=== PATIENT | female | born 1940 | race Caucasian/White ===

== ENCOUNTER 2019-08-26 20:02 | Inpatient (IN) | payer MEDICARE, BC ==
[~2019-08-26] VITALS: Ht 152.4 cm; Wt 72.2 kg
[2019-08-26] VITALS (84 sets, daily range): BP systolic 161; BP diastolic 69–89; PULSE 89–90; TEMP 98.1; O2SAT 86–99
[~2019-08-26 20:02] MED LIST: 00186-0372-20; ALDACTONE 25MG25 M1 PO; ALLEGRA 180MG180 MG PO; ALTACE 10MG TAB10 MG PO; APRESOLINE 25MG25 MG PO; ATIVAN 0.50.5 MG/TAB PO; CALCIUM 500500 M2 PO; CATAPRES 0.1MG0.1 MG PO; CEFTIN500 MG PO; COD LIVER OIL PO; COUMADIN 22.5 MG/TAB PO; COUMADIN 3MG3 MG/TAB PO; FEROSUL325 MG PO; LANOXIN 0.25M0.25 MG PO; LASIX 20MG TABL20 MG PO; LASIX 40MG TABL40 MG PO; LIPITOR 10MG10 MG PO; LOPRESSOR 225 MG/TAB PO; LOPRESSOR 550 MG/TAB PO; MULTI VITAMINS1 TAB PO; NEXIUM 40MG40 MG PO; NORVASC 5MG5 MG/TAB PO; PREMARIN 0.60.625 M1 PO; PRINIVIL10 MG PO; RED YEAST RICE600 MG PO; RT ADVAIR HFA 1112 G IH; RT SPIRIVA18 MCG IH; SOMA 350MG350 MG/TAB PO; TRICOR145 MG PO; ULTRAM 50MG TAB50 MG PO; VITAMIN B-1000 MCG/T PO; VITAMIN B-625 MG PO; ZESTRIL40 MG PO
--- NOTE | 2019-08-26 20:15 | NUR ---
PT RECEIVED DIRECT ADMIT FROM [facility], SUKHDEVM DRIP RUNNING AT 10 MG/HR AND WILL CONTINUE DRIP RATE. HR AT 90'S. WILL CONTINUE TO MONITOR.
[2019-08-26] MEDS ORDERED: PRIL40 PO (21:29)
[2019-08-26] MEDS ORDERED: TOPROL XL 25MG25 MG PO (21:37)
[2019-08-26] MEDS ORDERED: DULCOLAX STOOL100 MG PO (21:41)
[2019-08-26] MEDS ORDERED: GLUCOPHAGE1000 MG PO (21:42)
[2019-08-26] MEDS ORDERED: BREO IH (21:43)
[2019-08-26] MEDS ORDERED: RT SPIRIVA18 MCG IH (21:44)
[2019-08-27] VITALS (539 sets, daily range): BP systolic 94–190; BP diastolic 49–86; PULSE 68–111; TEMP 97.7–98.2; O2SAT 90–100
--- NOTE | 2019-08-27 04:33 | NUR ---
1929 - RECEIVED REPORT FROM ORVILLE HOLLEY OF [facility]. 2004 - PT ARRIVED IN UNIT VIA STRETCHER, ABLE TO TRANSFER SELF TO BED WITH 2 PERSON ASSIST. PT ALERT AND ORIENTED X 4, DENIES ANY PAIN UNLESS MOVING AND TOUCHING RLE. 2024 - DR. BRADFORD NOTIFIED REGARDING PT'S ARRIVAL. 2044 - DR. BRADFORD AT BEDSIDE DISCUSSING PLAN OF CARE WITH PT AND FAMILY.
[2019-08-27 05:24] LABS: BASO % 0.3 % (0.0-2.0); EOS % 0.2 % (0-4.0); GRAN # 8.6 (1.4-6.5); LYMPH # 1.2 (1.2-3.4); LYMPH % 10.8 % (20.0-51.0); MEAN CELL VOLUME 103 fl (80.0-100.0); MEAN CORPUSCULAR HGB CONC 32 g/dl (33.0-37.0); MEAN PLATELET VOLUME 10.6 fl (7.4-10.4); MONO # 0.9 (0.1-0.6); MONO % 8.2 % (1.7-9.3); PLATELET COUNT 157 K/mm3 (130-400); RED BLOOD COUNT 3.01 M/mm3 (4.10-5.30); REDCELL DISTRIBUTION WIDTH-CV 13.9 % (11.5-14.5)
[2019-08-27 05:30] LABS: ALBUMIN 3.3 gm/dL (3.5-5.0); BILIRUBIN,TOTAL 0.3 mg/dL (0.0-1.0); CALCIUM 8.4 mg/dL (8.4-10.2); CREATININE, serum 0.97 (0.52-1.25); HEMATOCRIT 31.1 % (37.0-47.0); HEMOGLOBIN 9.8 g/dl (12.5-16.0); INR 2.8 (0.8-3.0); MAGNESIUM 1.5 mg/dL (1.6-2.3); MEAN CORPUSCULAR HEMOGLOBIN 33 pg (27.0-31.0); POTASSIUM 4.4 mmol/L (3.4-5.0); PROTHROMBIN TIME 34.2 SECONDS (9.7-12.8); TOTAL PROTEIN 6.3 gm/dL (6.4-8.2)
[2019-08-27 05:42] LABS: TROPONIN-I 0.012 ng/mL (0.000-0.035)
--- NOTE | 2019-08-27 06:14 | NUR ---
Vancomycin Initial Dosing Pharmacy Note Ordering provider: Deni Jorgensen MD Indication/duration: skin/soft tissue infection (R-foot/ankle), 7 days Relevant comorbidities: diabetes, h/o x2 recent hospitalizations for [facility] LABS: SCr 0.97, CrCl~39, GFR 56 Recommendation: Will continue Vancomycin 1 gm IV q24h. Pharmacy will check a Vancomycin trough prior to 4th total dose on 08/29/19. Pharmacy will continue to monitor. Loading dose: 1 grams Maintenance dose: 1 gram every 24 hours Trough goal: 10-15 ug/mL
--- NOTE | 2019-08-27 09:10 | NUR ---
Warfarin Initial Dosing Pharmacy Note Ordering Provider: Deni Jorgensen MD Indication: Atrial fibrillation LABS: INR 2.8 (INR 3.8 yesterday per [facility]) Recommendation: Continue home dose of Warfarin 2.5 mg po qHS. Pharmacy will continue to monitor daily INR levels. Home Regimen: Warfarin 2.5 mg po qHS
--- NOTE | 2019-08-27 09:52 | NUR ---
Initial visit; Patient and thanked Film Editor Supervisor for looking in on her and keeping her in Film Editor Supervisor's prayers.
--- NOTE | 2019-08-27 11:29 | NUR ---
chemical research worker met with patient to discuss discharge planning. Patient lives with spouse in [place], [place] and does not utilize any services. Patient has a walker and a wheelchair. Patient plans to return home. Will await therapy recommendations when patient can tolerate. Patient's primary care provider is Dr Oconnell in [place].
--- NOTE | 2019-08-27 15:48 | NUR ---
Patient to room 358 from stress test. Nurse orientated patient to room and call light. Patient A&O, reporting pain in IV site on left arm and BUE. IV to left AC removed, tip intact. Patient tolerated well.
--- NOTE | 2019-08-27 15:55 | NUR ---
Assessment charted. VSS, 2L NC O2. No reported SOB. IV right forearm CDI. Patient assisted to bathroom with standby assist and gait belt. No further needs expressed from patient. Call light within reach
--- NOTE | 2019-08-27 18:21 | NUR ---
Patient resting in bed, easily awakened with verbal command. A&O, reporting pain in left arm with movement and palpation. VSS 2L NC O2. No reported SOB. IV CDI, fluids infusing. No further needs expressed from patient. Call light within reach
--- NOTE | 2019-08-28 02:20 | NUR ---
patient doing well tonight. ambulated to bathroom with assistance from [employer], heart rate did jump up to 140. returned to normal after returning to bed. significant R leg swelling noted. wound to lateral ankle CDI and open to air. RLE is red and shiny. L arm is edematic and bruised at AC site. no further needs at this time. will continue to monitor.
[2019-08-28 05:10] VITALS: BP 131/86; PULSE 145; PULSE 55; TEMP 98.4
--- NOTE | 2019-08-28 05:12 | NUR ---
patient up to bathroom. ambulated well. upon returning to bed, patient became SOA and pulse was up to 200. stat EKG done. AFIB with RVR noted with rate of 118. See Vitals. O2 normal, patient wheezing, reconnected to oxygen. encouraged deep breathing. IV to RFA pulled out by patient. new IV started in R hand. fluids capped for now. awaiting doctors orders. will continue to monitor.
[2019-08-28 07:25] LABS: BASO % 0.1 % (0.0-2.0); EOS # 0.1 (0.0-0.7); EOS % 0.8 % (0-4.0); GRAN # 7.9 (1.4-6.5); LYMPH % 9.9 % (20.0-51.0); MEAN CELL VOLUME 104 fl (80.0-100.0); MEAN CORPUSCULAR HGB CONC 30 g/dl (33.0-37.0); MEAN PLATELET VOLUME 10.6 fl (7.4-10.4); MONO % 9.6 % (1.7-9.3); PLATELET COUNT 183 K/mm3 (130-400); RED BLOOD COUNT 3.02 M/mm3 (4.10-5.30); REDCELL DISTRIBUTION WIDTH-CV 13.8 % (11.5-14.5)
[2019-08-28 07:30] LABS: INR 2.1 (0.8-3.0); PROTHROMBIN TIME 24.5 SECONDS (9.7-12.8)
[2019-08-28 07:34] LABS: HEMATOCRIT 31.5 % (37.0-47.0); HEMOGLOBIN 9.5 g/dl (12.5-16.0); MEAN CORPUSCULAR HEMOGLOBIN 31 pg (27.0-31.0)
[2019-08-28 07:38] VITALS: BP 131/68; PULSE 88; TEMP 98.3
[2019-08-28 07:40] LABS: CALCIUM 8.4 mg/dL (8.4-10.2); CREATININE, serum 0.81 (0.52-1.25); POTASSIUM 3.8 mmol/L (3.4-5.0)
[2019-08-28 08:12] LABS: C-REACTIVE PROTEIN 14.7 mg/dL (0.0-0.9)
--- NOTE | 2019-08-28 08:15 | NUR ---
Pt awake and alert this morning, spouse in room with Pt, no C/O pain at this time, shiftr assessments complete, left Pt call light in reach, bed in lowest position.
--- NOTE | 2019-08-28 09:01 | NUR ---
Facilities Officer attended clinical rounds with the team. Patient in rapid afib and will not discharge today. Patient would like to return home although Hospitalist reviewed option of post acute rehab. PT to work with patient. Speech Therapy also ordered. SW to continue to follow.
[2019-08-28 10:34] VITALS: BP 165/72; PULSE 118; TEMP 98.3
[2019-08-28 16:34] VITALS: BP 160/84; PULSE 117; TEMP 98.3
[2019-08-28 19:08] VITALS: BP 98/51; PULSE 113; TEMP 98.3
--- NOTE | 2019-08-28 20:00 | NUR ---
Report received. Assumed care for awake overnight counselor. Noted to be tachycardic into 120s-other VS stable. Assessment complete. Qarter size necrotic area to right lower extremity-open to air. Edema to BLE 2+/BUE 2+. Denies shortness of breath-pursed lip breathing-states breathing has been better earlier this day. Appears to be using some accessory muscles-O2 Sat 92-94% on O2@2L/NC. Denies pain. Denies nausea. Will monitor closely.
--- NOTE | 2019-08-28 20:10 | NUR ---
Pt rested in the room today, no C/O pain during the day, VS have remained stable except heart rate varies.
--- NOTE | 2019-08-28 22:00 | NUR ---
Resting in bed eyes closed. Respiratory rate WNL-Breathing easier at rest. Will monitor.
[2019-08-28 23:59] VITALS: BP 150/87; PULSE 127; TEMP 98.2
[2019-08-29] VITALS (606 sets, daily range): BP systolic 123–178; BP diastolic 56–100; PULSE 59–129; TEMP 97.5–98.2; O2SAT 89–100
--- NOTE | 2019-08-29 00:50 | NUR ---
Notified by PCT of increased shortness of breath after getting up to void. Arrived to room and is already back in bed. States she got short of breath when getting up out of bed. States its already starting to get better-still appears to be struggling. VS complete-remains tachycardic at 127-all other WNL. States she feels as if she is catching her breath now that she is laying down. Denies chest pain/nausea. Will continue to reassess.
--- NOTE | 2019-08-29 01:05 | NUR ---
This nurse to room-notified by staff that respiratory effort increasing. States she started to feel more short of breath the last few minutes. [id number], pulse 129, resps 26-pulse ox 92% on 2L/NC. Using accessory muscles to breathe-some light grunting. Audible wheezes heard without stethescope. Will notify hospitalist of status change.
--- NOTE | 2019-08-29 01:15 | NUR ---
SURESH Mcintosh in room.
--- NOTE | 2019-08-29 01:25 | NUR ---
New orders recieved to transfer to [facility]. service center supervisor notified waiting bed assignment. Dr Montanez notified of status change by this nurse-spoke with hospitalist as well.
--- NOTE | 2019-08-29 01:25 | NUR ---
Report called to IMCU nurse. Transported to IMCU bed 2. Assisted with transfer to ICU bed.
--- NOTE | 2019-08-29 02:11 | NUR ---
Emergency contact notified of transfer to [facility] BED 2. States he is glad that has happened and will be in around 6am this morning.
--- NOTE | 2019-08-29 02:15 | NUR ---
Explained to patient the purpose of Cardizem drip for A-fib RVR. Patient verbalized understanding. Leoncio A-fib RVR rate ranging from 100-130's.
--- NOTE | 2019-08-29 02:54 | NUR ---
Patient arrived to the unit via stretcher. Patient alert and cooperative, but in moderative respiratory distress at rest. Audible wheezing heard without a stethoscope. Attached to all monitors. 02 91-94% on 2L. Assessment complete at this time. Quarter sized wound to right lateral lower leg; Wound bed is black and open to air.
--- NOTE | 2019-08-29 02:54 | NUR ---
Inserted pickering at this time; patient tolerate procedure well. Received clear, yellow urine immediately after insertion. Will continue to monitor.
[2019-08-29 06:32] LABS: HEMOGLOBIN 10.4 g/dl (12.5-16.0); INR 2.1 (0.8-3.0); MEAN CELL VOLUME 105 fl (80.0-100.0); MEAN CORPUSCULAR HEMOGLOBIN 32 pg (27.0-31.0); MEAN CORPUSCULAR HGB CONC 31 g/dl (33.0-37.0); MEAN PLATELET VOLUME 10.7 fl (7.4-10.4); PLATELET COUNT 188 K/mm3 (130-400); PROTHROMBIN TIME 24.5 SECONDS (9.7-12.8); RED BLOOD COUNT 3.21 M/mm3 (4.10-5.30); REDCELL DISTRIBUTION WIDTH-CV 13.9 % (11.5-14.5)
[2019-08-29 06:39] LABS: HEMATOCRIT 33.8 % (37.0-47.0)
[2019-08-29 06:48] LABS: CALCIUM 9.2 mg/dL (8.4-10.2); CREATININE, serum 0.81 (0.52-1.25); MAGNESIUM 1.9 mg/dL (1.6-2.3); POTASSIUM 4.5 mmol/L (3.4-5.0)
--- NOTE | 2019-08-29 08:00 | NUR ---
PT'S RESPIRATIONS LABORED W/ AUDIBLE WHEEZING. PT'S LEFT LUNG BEARD COARSE THROUGHOUT. RIGHT UPPER AND MID LOBES COARSE, RIGHT BASE COARSE CRACKLES. LEFT AC AREA/POSTERIOR LEFT ELBOW IS REDDENED, EDEMATOUS, WITH ERYTHEMA AND GOLF BALL SIZE KNOT. CELLULITIS TO RIGHT ANKLE/GONCALVES AREA WITH GOLF BALL SIZE ULCER WITH A DARK/BLACK SCAB. REDNESS NOTED TO PERIPHERY OF ULCER. ANT OINTMENT AND BANDAGE APPLIED. PT'S COCCYX REDDEND WITH SMALL EXCORIATED AREAS TO BILATERAL BUTTOCKS ON EITHER SIDE OF COCCYX.
--- NOTE | 2019-08-29 08:02 | NUR ---
CALLED DR ELIZABETH REGARDING POSSIBLE THORACENTESIS THIS AM ACCORDING TO ZACH'S NOTE OVERNIGHT. DR ELIZABETH STATED HE WILL BE HERE TO ASSESS PATIENT IN 10 MINUTES. NO ORDER FOR NPO OR THORA PLACED SO CAFETERIA GAVE PATIENT HER TRAY AND PATIENT HAD ALREADY BEGUN EATING WHILE NURSE WAS IN ANOTHER ROOM. DR ELIZABETH STATES IT IS OK FOR HER TO EAT AND HE WILL DETERMINE THE PLAN OF CARE WHEN HE ARRIVES.
--- NOTE | 2019-08-29 10:21 | NUR ---
DR BRADFORD PLACED GI CONSULT FOR UPPER GI. DR BRADFORD CALLED DR DAVID TO NOTIFY. UPPER GI SCHEDULED FOR TODAY AT 12. DIRECTOR OF FOOD AND NUTRITION SERVICES CALLED. ANESTHESIA NOTIFIED.
--- NOTE | 2019-08-29 10:27 | NUR ---
Follow-up visit; Patient and thanked Tube Knitter for looking in on her and wishing her well and God's blessings.
--- NOTE | 2019-08-29 10:32 | NUR ---
CONSENT FOR UPPER SCOPE OBTAINED AND PLACED ON CHART.
[2019-08-29 11:38] LABS: INR 1.8 (0.8-3.0); PROTHROMBIN TIME 20.8 SECONDS (9.7-12.8)
--- NOTE | 2019-08-29 12:15 | NUR ---
PT TAKEN BY STEFANI ENDO NURSE, TO ENDO FOR UPPER GI.
--- NOTE | 2019-08-29 12:56 | NUR ---
REPORT RECEIVED FROM MALLIKA KO RN. NO BIOPSIES PERFORMED D/T INR LEVEL ACCORDING TO STEFANI. PATIENT AWAKE, ALERT, AND ORIENTED.
--- NOTE | 2019-08-29 13:18 | NUR ---
US TECH HERE TO SET UP FOR THORACENTESIS. CONSENT OBTAINED AND PLACED ON CHART.
--- NOTE | 2019-08-29 13:35 | NUR ---
TIME OUT COMPLETED BY DR MAGAÑA PRIOR TO INITATION OF PROCEDURE.
--- NOTE | 2019-08-29 13:54 | NUR ---
1.1L CLEAR, PINK TINGED FLUID REMOVED FROM PLEURAL SPACE BY DR MAGAÑA IN RADIOLOGY. GALILEO US TECH, SENT SPECIMENS OF PLEURAL FLUID FOR RESTING. AREA COVERED WITH BANDAID. PT TOLERATED WELL.
[2019-08-29 14:22] LABS: PLEURAL FLUID RBC 12000 /mm3 (0-0); PLEURAL FLUID WBC 901 /mm3
[2019-08-29 14:42] LABS: PLEURAL FLUID APPEARANCE HAZY; PLEURAL FLUID COLOR PINK
[2019-08-29 14:43] LABS: GLUCOSE,PLEURAL FLUID 227 mg/dL
[2019-08-29 14:45] LABS: TOTAL PROTEIN,PLEURAL FLUID < 2.0 gm/dL
--- NOTE | 2019-08-29 19:00 | NUR ---
RECEIVED REPORT FROM ORVILLE OLIVARES. PT SITTING UP IN BED WATCHING TV. CARDIZEM GTT AT 10ML/HR. FC PATENT AND DRAINING TO GRAVITY. CALL LIGHT WITHIN REACH. VSS.
--- NOTE | 2019-08-29 21:00 | NUR ---
DRESSING CHANGE TO RLE ULCER WITH ANTIBIOTIC OINTMENT APPLIED. PT STATES IT HURTS THE MOST WHEN THE BANDAGE COMES OFF BUT ISN'T SO BAD WHEN APPLYING THE OINTMENT. CALL LIGHT WITHIN REACH.
[2019-08-30] VITALS (863 sets, daily range): BP systolic 131–165; BP diastolic 64–83; PULSE 69–97; TEMP 97.8–98.4; O2SAT 85–100
--- NOTE | 2019-08-30 09:00 | NUR ---
Pt is awake and A/Ox4, sitting up in the bed reading the newspaper. She denies any pain or discomfort. Cardizem gtt continues to run at 5 ml/hr into right upper arm PICC line. 2 + edema noted to bilateral lower extremeities. Dressing to RLE changed, antibiotic cream applied. Jett cath to DD is draining clear, yellow urine. Resp. are even and unlabored, pt on 4L O2 per NC, sats 100% at this time so weaned down to 3L. at bedside, denies any other needs.
[2019-08-30 09:57] LABS: HEMOGLOBIN 10.1 g/dl (12.5-16.0); MEAN CELL VOLUME 104 fl (80.0-100.0); MEAN CORPUSCULAR HEMOGLOBIN 33 pg (27.0-31.0); MEAN CORPUSCULAR HGB CONC 31 g/dl (33.0-37.0); MEAN PLATELET VOLUME 10.4 fl (7.4-10.4); PLATELET COUNT 213 K/mm3 (130-400); RED BLOOD COUNT 3.09 M/mm3 (4.10-5.30); REDCELL DISTRIBUTION WIDTH-CV 13.5 % (11.5-14.5)
[2019-08-30 09:58] LABS: HEMATOCRIT 32.2 % (37.0-47.0)
[2019-08-30 12:26] LABS: BAND 8 % (0-10); LYMPHOCYTE 4 % (20.0-51.0); NEUTROPHILS 87 % (42.0-75.2)
[2019-08-30 12:27] LABS: PLATELET ESTIMATE NORMAL (NORMAL)
--- NOTE | 2019-08-30 12:49 | NUR ---
Cardizem gtt turned off at this time per Dr. Turner.
--- NOTE | 2019-08-30 12:50 | NUR ---
Pt is sitting up in bed, eating lunch. at bedside. Pt denies any other needs.
[2019-08-30 13:59] LABS: CALCIUM 8.8 mg/dL (8.4-10.2); CREATININE, serum 1.11 (0.52-1.25); POTASSIUM 3.7 mmol/L (3.4-5.0)
--- NOTE | 2019-08-30 14:56 | NUR ---
Heart rate continues to do well post cardizem gtt being shut off, HR remains in the 70s.
--- NOTE | 2019-08-30 17:53 | NUR ---
Pt to transfer to medical, room 358. Report called to ORVILLE Ross. notified of transfer.
--- NOTE | 2019-08-30 19:07 | NUR ---
Pt up to floor at 1815. Pt on 3L via nasal cannula. Pt alert and oriented and states was SOB with transfer but recovered now. Pt rest in bed with call light in reach. Pt denies pain at this time. Pt denies needs at this time. Pt ate supper in ICU and BS taken and insulin given in ICU per Radha JACINTO.
--- NOTE | 2019-08-30 19:37 | NUR ---
Pt report given to Mervat JACINTO
[2019-08-31 00:51] VITALS: BP 147/67; PULSE 103; TEMP 97.7
[2019-08-31 04:10] VITALS: BP 167/72; PULSE 102; TEMP 98.2
[2019-08-31 06:29] LABS: MEAN CELL VOLUME 102 fl (80.0-100.0); MEAN CORPUSCULAR HEMOGLOBIN 32 pg (27.0-31.0); MEAN CORPUSCULAR HGB CONC 32 g/dl (33.0-37.0); MEAN PLATELET VOLUME 10.6 fl (7.4-10.4); PLATELET COUNT 203 K/mm3 (130-400); REDCELL DISTRIBUTION WIDTH-CV 13.3 % (11.5-14.5)
[2019-08-31 06:31] LABS: HEMATOCRIT 31.7 % (37.0-47.0)
[2019-08-31 06:32] LABS: INR 1.1 (0.8-3.0); PROTHROMBIN TIME 12.6 SECONDS (9.7-12.8)
[2019-08-31 06:46] LABS: CALCIUM 8.5 mg/dL (8.4-10.2); CREATININE, serum 0.99 (0.52-1.25); POTASSIUM 3.2 mmol/L (3.4-5.0)
[2019-08-31 07:46] VITALS: BP 151/73; PULSE 96; TEMP 97.8
--- NOTE | 2019-08-31 08:10 | NUR ---
Report rcvd from ORVILLE Alvarez at beginning of shift. Pt had an unremarkable night. Slept well. No concerns. Report given to ORVILLE Alvarez at end of shift.
--- NOTE | 2019-08-31 10:19 | NUR ---
Pt am assessment completed. Pt's spouse at bedside. Pt's bottom is red. Shirley cares provided and cath care also provided. Pt pickering cath patent with clear yellow urine. Pt repositioned in bed. Pt's PICC patent no redness or infiltration. Pt left arm continues to have some edema noted. Warm compress given per orders. Pt remains on 3L oxygen via nasal cannula. Pt has SOB with minimal activity. Pt RLE cellulitis is slighty red on ankle area and ulcer on estrada remains half dollar size with brown mucous eschar noted. Ulcer cleansed with NS and AIDE applied and covered with mepilex. Pt reports it is quite painful changing the dressing. Pt has call light in reach and denies needs at this time.
[2019-08-31 10:20] LABS: BAND 7 % (0-10); LYMPHOCYTE 3 % (20.0-51.0); NEUTROPHILS 87 % (42.0-75.2); PLATELET ESTIMATE NORMAL (NORMAL)
[2019-08-31 11:53] VITALS: BP 119/81; PULSE 92; TEMP 97.9
--- NOTE | 2019-08-31 15:22 | NUR ---
Pt stable this shift. Pain on bottom has decreased wiht frequent repositioning and application of barrier cream to reddened bottom and groin area. Pt's pickering remains patent and cleansed. Pt denies needs at this time. SOB unchanged and pt remains on 3L oxygen via nasal cannula. Pt has call light in reach and denies needs.
[2019-08-31 15:40] VITALS: BP 148/65; PULSE 78; TEMP 97.7
--- NOTE | 2019-08-31 16:21 | NUR ---
Will report to oncoming nurse about calling wound care to ask about dressing choices per patient request on Sunday.
--- NOTE | 2019-08-31 19:45 | NUR ---
Report rcvd from ORVILLE Alvarez. Pt laying in bed. Assessment completed, Pt voices no c/o of pain, only some discomfort with her right lower leg. Report given that pt was titrated by RT to RA. No other concerns at this time. Pt voices no needs. Call light within reach. Bed in low and locked position. Will continue to monitor.
[2019-08-31 21:00] VITALS: BP 160/77; PULSE 106; TEMP 98
[2019-09-01] VITALS (7 sets, daily range): BP systolic 121–163; BP diastolic 59–97; PULSE 66–110; TEMP 97.8–98.5
[2019-09-01 05:55] LABS: HEMOGLOBIN 10.4 g/dl (12.5-16.0); MEAN CELL VOLUME 102 fl (80.0-100.0); MEAN CORPUSCULAR HEMOGLOBIN 32 pg (27.0-31.0); MEAN CORPUSCULAR HGB CONC 31 g/dl (33.0-37.0); MEAN PLATELET VOLUME 10.1 fl (7.4-10.4); PLATELET COUNT 231 K/mm3 (130-400); RED BLOOD COUNT 3.26 M/mm3 (4.10-5.30)
[2019-09-01 05:57] LABS: HEMATOCRIT 33.1 % (37.0-47.0)
[2019-09-01 06:00] LABS: INR 1.1 (0.8-3.0); PROTHROMBIN TIME 12.3 SECONDS (9.7-12.8)
[2019-09-01 06:04] LABS: CALCIUM 8.6 mg/dL (8.4-10.2); CREATININE, serum 0.93 (0.52-1.25)
[2019-09-01 06:14] LABS: POTASSIUM 2.9 mmol/L (3.4-5.0)
[2019-09-01 06:35] LABS: ANISOCYTOSIS 1+; BAND 2 % (0-10); LYMPHOCYTE 1 % (20.0-51.0); MYELOCYTE 2 % (0-0); NEUTROPHILS 89 % (42.0-75.2); PLATELET ESTIMATE NORMAL (NORMAL)
--- NOTE | 2019-09-01 07:30 | NUR ---
Report given to ORVILLE Batista and Student RN.
--- NOTE | 2019-09-01 08:45 | NUR ---
Report received from Mervat JACINTO and care resumed. Pt resting upon assessment. Denies any concerns. at bedside and states he is taking pt to the [facility] today. I asked if he had been discusssing this with staff, doctors throughout the weekend. stated no but that they needed to come see her soon so he could get to the [facility] and fill out paperwork. Told patient and I would talk with case management and doctors and let them know the family's wishes. No concerns at this time, will continue to follow.
--- NOTE | 2019-09-01 10:53 | NUR ---
Report given to Carlo at this time transfered.
--- NOTE | 2019-09-01 11:05 | NUR ---
Report from Lynne Obrien
--- NOTE | 2019-09-01 12:04 | NUR ---
student nurse did patients dressing change, wound had bloody and white drainage on wound and old dressing. student nurse cleaned wound apllied antibiotic ointment to wound and placed a foam dressing over the wound.
--- NOTE | 2019-09-01 16:56 | NUR ---
Stamping Bench Die Maker met with patient to discuss SNF placement. Patient states she wants to go to [facility]. SW presented patient choice form and patient provided signature. SW placed form in patient chart. SW faxed referral to [facility] and spoke with Mily, who advised patient's Chaz was there earlier today to bring in paperwork although it was not complete. Chaz is to bring in additional paperwork to [facility] tomorrow. SW to continue to follow to ensure safe discharge.
--- NOTE | 2019-09-01 20:00 | NUR ---
Assessment complete. Alert and oriented. Denies any pain, discomfort, headache. Noted SOB at rest. Assisted pt to/from restroom with increased SOB, denies pain on exertion. Medications administered as ordered. On tele monitor, leads checked and in place. Noted redness to sacral area with foam dressing in place. Dressing in place to wound on RLE. Denies pain at rest. Needs met at this time. Call light within reach.
[2019-09-02 02:58] VITALS: BP 155/75; PULSE 94; TEMP 98.2
[2019-09-02 05:47] LABS: MEAN CELL VOLUME 102 fl (80.0-100.0); MEAN CORPUSCULAR HEMOGLOBIN 32 pg (27.0-31.0); MEAN CORPUSCULAR HGB CONC 31 g/dl (33.0-37.0); MEAN PLATELET VOLUME 10.4 fl (7.4-10.4); PLATELET COUNT 251 K/mm3 (130-400); RED BLOOD COUNT 3.43 M/mm3 (4.10-5.30); REDCELL DISTRIBUTION WIDTH-CV 13.2 % (11.5-14.5)
[2019-09-02 05:48] LABS: PROTHROMBIN TIME 12.1 SECONDS (9.7-12.8)
[2019-09-02 05:56] LABS: CREATININE, serum 0.92 (0.52-1.25); MAGNESIUM 2.2 mg/dL (1.6-2.3); POTASSIUM 3.7 mmol/L (3.4-5.0)
[2019-09-02 07:01] LABS: BAND 4 % (0-10); LYMPHOCYTE 13 % (20.0-51.0); MYELOCYTE 2 % (0-0); NEUTROPHILS 74 % (42.0-75.2); NUCLEATED RED BLOOD CELL 1 (0-6)
[2019-09-02 07:02] LABS: PLATELET ESTIMATE NORMAL (NORMAL)
--- NOTE | 2019-09-02 07:05 | NUR ---
Report given to ORVILLE Ross.
[2019-09-02 07:40] VITALS: BP 160/88; PULSE 80; TEMP 98.3
[2019-09-02] MEDS ORDERED: ZEBETA10 MG PO (08:34)
[2019-09-02] MEDS ORDERED: TYLENOL 325MG325 MG PO (08:35)
[2019-09-02] MEDS ORDERED: GOOD SENSE TRIP1 OI1 TP (08:37)
[2019-09-02] MEDS ORDERED: CIPRO 500MG TA500 MG PO (09:03)
[2019-09-02] MEDS ORDERED: CARDIZEM CD 24240 MG PO (09:05)
[2019-09-02] MEDS ORDERED: BD POSIFLUSH SF10 ML IV (09:06)
[2019-09-02] MEDS ORDERED: NORVASC2.5 MG PO (09:06)
[2019-09-02] MEDS ORDERED: K-TAB20 PO (09:07)
[2019-09-02] MEDS ORDERED: LASIX 40MG TABL40 MG PO (09:07)
[2019-09-02] MEDS ORDERED: GLUCOPHAGE500 MG/TAB PO (09:08)
[2019-09-02] MEDS ORDERED: MEDROL 4MG DOSPA4 MG PO (09:08)
[2019-09-02] MEDS ORDERED: NOVOLOG FLEX100 U/ML SQ (09:09)
--- NOTE | 2019-09-02 09:45 | NUR ---
PICC intact right upper arm with sterile technique right upper arm PICC dressing change done with insertion site cleansed with chlorhexidine 1, chlorhexidine impregnated disc applied, skin prep, StatLock, and Tegaderm applied. No signs or symptoms of IV complications noted. No concerns voiced. Arm wrapped with Pablo to protect catheter. Patient is going to [facility] today.
[2019-09-02 10:31] VITALS: BP 160/88; PULSE 80; TEMP 98.3
[2019-09-02 11:08] VITALS: BP 129/76; PULSE 82; TEMP 97.9
--- NOTE | 2019-09-02 11:25 | NUR ---
Senior Designer attended clinical rounds with the team. Patient to discharge today to [facility]. BRIAN presented IM form to patient and patient's , Bill. Patient understands rights and Bill provided signature. BRIAN placed IM in chart. BRIAN faxed discharge orders and spoke with Regine at [facility]. No additional concerns at this time.
--- NOTE | 2019-09-02 11:43 | NUR ---
In House Counsel received a phone call from Regine at [facility] who advised they could not accept patient with pic line. BRIAN collaborated with Hospitalist and Laury, Nurse Practitioner who advised pic line will be taken out prior to discharge. BRIAN contacted [facility] with update.
--- NOTE | 2019-09-02 13:00 | NUR ---
Pt incontinent of urine. Cares provided and pt put in gown since home clothes soaked. Pt BS checked and 272. Pt going to [facility] via private vehicle now. Pt's spouse here to take pt. PICC line taken out now after updated that [facility] will not take pt with PICC line in. Pt has all belongings and transported via wheelchair by aide to car without incident.
--- NOTE | 2019-09-02 15:21 | NUR ---
Pt alert and oriented. Pt gets up with 1assist with walker. Pt groin and sury areas cleansed. Pt bottom has mepilex in place. Pt SOB with minimal activity. Pt denies pain at rest but pain increases with touch to RLE. Pt having dressing change and medication given for pain for dressing change this am. Pt wound has small amount of serosanguonous drainage noted. AIDE and mepilex placed on RLE wound. Pt has call light in reach.
== END 2019-09-02 13:10 | DRG 309 ==
LOC: MEDICAL 20:02 → ICU 20:02 → MEDICAL 08-27 16:00 → ICU 08-29 01:51 → MEDICAL 08-30 17:02
PROVIDERS: Hospitalist; Internal Medicine Critical Care Medicine; Nurse Practitioner Family; Student in an Organized Health Care Education/Training Program; ADMIT Internal Medicine
PROC: 02PYX3Z Removal of Infusion Device from Great Vessel, External Approach (ICD-10-PCS; principal; 2019-08-26)
PROC: 02HV33Z Insertion of Infusion Device into Superior Vena Cava, Percutaneous Approach (ICD-10-PCS; 2019-08-29)
PROC: 0W993ZZ Drainage of Right Pleural Cavity, Percutaneous Approach (ICD-10-PCS; 2019-08-29)
PROC: 0DJ08ZZ Inspection of Upper Intestinal Tract, Via Natural or Artificial Opening Endoscopic (ICD-10-PCS; 2019-08-29)
DX: I48.20 Chronic atrial fibrillation, unspecified (principal); L03.115 Cellulitis of right lower limb; J90 Pleural effusion, not elsewhere classified; J43.9 Emphysema, unspecified; I10 Essential (primary) hypertension; E78.5 Hyperlipidemia, unspecified; E87.5 Hyperkalemia; M19.90 Unspecified osteoarthritis, unspecified site; R13.10 Dysphagia, unspecified; E87.6 Hypokalemia; B95.5 Unspecified streptococcus as the cause of diseases classified elsewhere; E11.51 Type 2 diabetes mellitus with diabetic peripheral angiopathy without gangrene; T38.0X5A Adverse effect of glucocorticoids and synthetic analogues, initial encounter; E11.65 Type 2 diabetes mellitus with hyperglycemia; Z79.01 Long term (current) use of anticoagulants; Z90.49 Acquired absence of other specified parts of digestive tract; Z90.710 Acquired absence of both cervix and uterus; Z79.51 Long term (current) use of inhaled steroids; Z87.891 Personal history of nicotine dependence; Z88.0 Allergy status to penicillin; Z88.5 Allergy status to narcotic agent; Z79.84 Long term (current) use of oral hypoglycemic drugs
CPT/HCPCS: 99223-AI; 99232-AI; 99233-AI; 99239; A4216; A9500; C1751; J0692; J0696; J1815; J1940; J2270; J2704; J2785; J2920; J3370; J3430; J3475; J3480; J7030; J7050; J7512

== ENCOUNTER → 2019-10-02 | Outpatient (CLI) | payer MEDICARE, BC ==
[~2019-10-02] MED LIST changes: +BD POSIFLUSH SF10 ML IV; +BREO IH; +CARDIZEM CD 24240 MG PO; +CIPRO 500MG TA500 MG PO; +DULCOLAX STOOL100 MG PO; +GLUCOPHAGE1000 MG PO; +GLUCOPHAGE500 MG/TAB PO; +GOOD SENSE TRIP1 OI1 TP; +K-TAB20 PO; +MEDROL 4MG DOSPA4 MG PO; +NORVASC2.5 MG PO; +NOVOLOG FLEX100 U/ML SQ; +PRIL40 PO; +TOPROL XL 25MG25 MG PO; +TYLENOL 325MG325 MG PO; +ZEBETA10 MG PO
== END ==
LOC: ZCOL.LAB 14:56
DX: I83.009 Varicose veins of unspecified lower extremity with ulcer of unspecified site (principal)

== ENCOUNTER → 2020-02-12 | Outpatient (CLI) | payer MEDICARE, BC | LOC: COL.RAD 10:58 | DX: J90 Pleural effusion, not elsewhere classified (principal); I51.7 Cardiomegaly | CPT/HCPCS: A9540; A9567 ==